=== PATIENT | female | born 1945 | race Caucasian/White ===

== ENCOUNTER 2017-06-26 15:11 | Emergency (ER) | payer MEDICARE, OTHER ==
--- NOTE | 2017-06-26 15:19 | ED Physician Documentation ---
PD HPI FEMALE - Stated complaint Stated Complaint: FEMALE - History obtained from History obtained from: Patient - History of Present Illness Timing - onset: Today Timing - details: Abrupt onset, Still present Associated symptoms: Dysuria, Urinary frequency, Hematuria. No: Abdominal pain , Back pain, Vaginal discharge, Genital sore/lesion Contributing factors: Sexually active Similar symptoms before: Has not had sx before Recently seen: Not recently seen Review of Systems Constitutional: denies: Fever, Chills GI: reports: Diarrhea (a week ago for couple of days, now improved.). 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 - Present Medications Home Medications: Ambulatory Orders Medication Instructions Recorded Confirmed Benzonatate 1 cap PO Q8HR 07/11/14 07/11/14 Citalopram Hydrobromide 20 mg PO DAILY 07/11/14 07/11/14 [Citalopram HBr] Dexamethasone [Decadron] 4 mg PO DAILY #5 tablet 07/11/14 Lisinopril 20 mg PO DAILY 07/11/14 07/11/14 guaiFENesin/CODEINE [Robitussin AC] 10 ml PO DAILY 07/11/14 07/11/14 guaiFENesin/CODEINE [Robitussin AC] 10 ml PO Q6H PRN #240 ml 07/11/14 Phenazopyridine [Pyridium] 100 mg PO TID PRN #15 tablet 06/26/17 Sulfamethox/Trimeth 800/160 1 each PO BID #10 tablet 06/26/17 [Bactrim Ds 800/160] - Allergies Allergies/Adverse Reactions: Allergies Allergy/AdvReac Type Severity Reaction Status Date / Time No Known Drug Allergies Allergy Verified 06/26/17 15:21 - Social History Does the pt smoke?: No Smoking Status: Never smoker Does the pt drink ETOH?: No Does the pt have substance abuse?: No PD ED PE NORMAL - Vitals Vital signs reviewed: Yes - General General: Alert and oriented X 3, No acute distress, Well developed/nourished - Abdomen Abdomen: Soft, Non tender - Back Back: No CVA TTP - Derm Derm: Normal color, Warm and dry Results - Vitals Vitals: Vital Signs - 24 hr 06/26/17 15:18 Temperature 36.1 C L Heart Rate 86 Respiratory 18 Rate Blood Pressure 137/88 H O2 Saturation 98 Oxygen O2 Source Room air PD MEDICAL DECISION MAKING - ED course Complexity details: reviewed results, considered differential, d/w patient Departure - Departure Disposition: Home, Self Care Clinical Impression: UTI (urinary tract infection) Qualifiers: Urinary tract infection type: acute cystitis Hematuria presence: with hematuria Qualified Code(s): N30.01 - Acute cystitis with hematuria Condition: Stable Record reviewed to determine appropriate education?: Yes Instructions: ED UTI Cystitis Female Prescriptions: Sulfamethox/Trimeth 800/160 [Bactrim Ds 800/160] 1 each PO BID #10 tablet Phenazopyridine [Pyridium] 100 mg PO TID PRN #15 tablet PRN Reason: Pain Comments: Drink lots of fluids. Use the phenazopyridine 3 times a day if needed for discomfort with urination. He can also use Tylenol or ibuprofen. Bactrim antibiotic twice daily for 5 days. Recheck if not improving over the next couple of days.
[2017-06-26] MEDS ORDERED: SULFAMETH/TRIMETH DS 800/160 MG TABLET PO STA (15:33)
[2017-06-26] MEDS ORDERED: PHENAZOPYRIDINE 100 MG TABLET PO STA (15:33)
[2017-06-26 15:43] LABS: BILIRUBIN,URINE NEGATIVE (NEGATIVE); PH,URINE 6.5 PH (5.0-7.5)
[2017-06-26] MEDS ORDERED: SULFAMETH/TRIMETH DS 800/160 MG TABLET PO ONE (15:46)
[2017-06-26] MEDS ORDERED: PHENAZOPYRIDINE 100 MG TABLET PO ONE (15:46)
[2017-06-26 15:47] LABS: UA w/ MICROSCOPIC CHARGE YES
[2017-06-26 15:48] LABS: UR CULTURE IF IND INDICATED
[2017-06-26 16:22] VITALS: BP 142/90
== END 2017-06-26 16:18 | disposition home or self-care (01) ==
LOC: ED 15:11
DX: N30.01 Acute cystitis with hematuria (principal); I10 Essential (primary) hypertension
CPT/HCPCS: 81001; 87086; 99283; A9270; 81003

== ENCOUNTER 2019-07-11 13:40 | Emergency (ER) | payer MEDICARE, OTHER ==
[2019-07-11] MEDS ORDERED: TETANUS/DIPHTHERIA/PERTUSSIS 0.5 ML SYRINGE IM ONE (14:02)
[2019-07-11] MEDS ORDERED: LIDOCAINE 1% 2 ML VIAL SUBQ STA (14:08)
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
[2019-07-11 15:04] VITALS: BP 144/78
== END 2019-07-11 15:03 | disposition home or self-care (01) ==
LOC: ED 13:40
DX: S61.211A Laceration without foreign body of left index finger without damage to nail, initial encounter (principal); W26.0XXA Contact with knife, initial encounter; Y92.009 Unspecified place in unspecified non-institutional (private) residence as the place of occurrence of the external cause; I10 Essential (primary) hypertension
CPT/HCPCS: 12001; 90471

== ENCOUNTER 2020-06-29 10:34 | Outpatient (CLI) | payer MEDICARE, OTHER | END 2020-06-29 10:35 | disposition critical access hospital (66) | LOC: EMS 10:34 | PROVIDERS: ATTEND Surgery | DX: M25.561 Pain in right knee (principal) | CPT/HCPCS: A0425; A0429 ==

== ENCOUNTER 2020-06-29 10:59 | Emergency (ER) | payer MEDICARE, OTHER ==
--- NOTE | 2020-06-29 12:24 | XRAY Report ---
PROCEDURE: Knee 4 View RT INDICATIONS: posterior knee pain TECHNIQUE: 4 views of the right knee(s) were acquired. COMPARISON: None. FINDINGS: Bones: No fractures or dislocations, but there is a mild degree of joint space narrowing at the late ral facet of the patellofemoral joint, consistent with secondary changes of patellofemoral joint oste oarthritis. No suspicious bony lesions. Soft tissues: No joint effusion. No suspicious soft tissue calcifications. IMPRESSION: Patellofemoral joint osteoarthritis, lateral facet. No trauma found. Reviewed by: Parminder Sherman MD on 06/29/2020 12:22 PM PDT Approved by: Parminder Sherman MD on 06/29/2020 12:22 PM PDT Station ID: [id number]
--- NOTE | 2020-06-29 13:12 | Ultrasound Report ---
PROCEDURE: Duplex Ext Veins Right INDICATIONS: Posterior knee pain TECHNIQUE: Real-time imaging, as well as color and pulse Doppler interrogation, were performed of the lower extr emity deep veins from the inguinal ligament to the popliteal fossa. COMPARISON: None. FINDINGS: There is no Clement's cyst or other fluid collection in the right popliteal region. The deep veins are normally compressible, and free of intraluminal thrombus. Color and pulse Doppler demonst rate normal phasic intraluminal flow. There is normal augmentation response to distal compression ma neuver. IMPRESSION: No evidence of deep venous thrombosis or Clement's cyst. Reviewed by: Costa Bradley MD on 06/29/2020 1:11 PM PDT Approved by: Costa Bradley MD on 06/29/2020 1:11 PM PDT Station ID: [id number]
--- NOTE | 2020-06-29 13:42 | ED Physician Documentation ---
PD HPI LOWER EXT INJURY - Stated complaint Stated Complaint: R KNEE PX - Chief complaint Chief Complaint: Ext Problem - History obtained from History obtained from: Patient - History of Present Illness PD HPI LOW EXT INJURY LOCATION: Right, Knee Type of injury: Twist Where injury occurred: Street Timing - onset: Last night Timing - duration: Hours Timing - details: Abrupt onset, Still present Improved by: Rest, Ice, Immobilization Worsened by: Moving, Palpating Associated symptoms: Swelling. No: Weakness, Numbness, Tingling Similar symptoms before: Has not had sx before Recently seen: Not recently seen - Additional information Additional information: 75-year-old female had sudden onset of pain in her left posterior thigh while walking and she subsequently developed the pain behind her left knee a feeling like something exploded or popped and pain radiating down into her calf. She is concerned about the possibility of blood clot. She is having pain when she bears weight in her knee. 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 - Present Medications Home Medications: Ambulatory Orders Medication Instructions Recorded Confirmed Benzonatate 1 cap PO Q8HR 07/11/14 07/11/14 Citalopram Hydrobromide 20 mg PO DAILY 07/11/14 07/11/14 [Citalopram HBr] Lisinopril 20 mg PO DAILY 07/11/14 07/11/14 dexAMETHasone [Decadron] 4 mg PO DAILY #5 tablet 07/11/14 guaiFENesin/CODEINE [Robitussin AC] 10 ml PO DAILY 07/11/14 07/11/14 guaiFENesin/CODEINE [Robitussin AC] 10 ml PO Q6H PRN #240 ml 07/11/14 Phenazopyridine [Pyridium] 100 mg PO TID PRN #15 tablet 06/26/17 Sulfamethox/Trimeth 800/160 1 each PO BID #10 tablet 06/26/17 [Bactrim Ds 800/160] - Allergies Allergies/Adverse Reactions: Allergies Allergy/AdvReac Type Severity Reaction Status Date / Time No Known Drug Allergies Allergy Verified 06/26/17 15:21 - Social History Does the pt smoke?: No Smoking Status: Never smoker Does the pt drink ETOH?: No Does the pt have substance abuse?: No - Immunizations Immunizations are current?: Yes PD ED PE NORMAL - Vitals Vital signs reviewed: Yes (hypertensive ) - General General: Alert and oriented X 3, No acute distress, Well developed/nourished - HEENT HEENT: Atraumatic, PERRL, EOMI - Respiratory Respiratory: No respiratory distress - Derm Derm: Normal color, Warm and dry, No rash - Extremities Extremities: Other (There is tenderness to the posterior calf and posterior aspect of the knee extending up to the posterior aspect of the thigh. There is no palpable cord. There is some pain to flexion extension of the knee there is no palpable joint effusion and the ligaments are stable to testing. 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 No trauma found.), EMP read indepedently, See rad report Venous duplex Radiology: Prelim report reviewed, EMP read indepedently, See rad report PD MEDICAL DECISION MAKING - ED course Complexity details: reviewed results, re-evaluated patient, considered differential, d/w patient, d/w family ED course: 75-year-old female who is recovering from a back surgery is going out on a walk daily of less than 2 blocks. Today she had acute onset of pain in the posterior upper thigh posterior lower thigh and had to limp home. After getting into her trailer and walking to her chair she felt a pop in the back of her leg she has significant pain and there is no evidence of DVT fracture or joint effusion. I suspect she has a muscular injury to her posterior thigh. Sh is placed onto crutches. Departure - Departure Disposition: 01 Home, Self Care Clinical Impression: Muscle strain of right thigh Qualifiers: Encounter type: initial encounter Qualified Code(s): S76.911A - Strain of unspecified muscles, fascia and tendons at thigh level, right thigh, initial encounter Condition: Stable Instructions: ED Strain Muscle Ext Follow-Up: [facility] [Provider Group]
[2020-06-29 14:39] VITALS: BP 137/80
== END 2020-06-29 14:39 | disposition home or self-care (01) ==
LOC: EDUNIT# → ED 10:59
DX: S76.911A Strain of unspecified muscles, fascia and tendons at thigh level, right thigh, initial encounter (principal); X50.1XXA Overexertion from prolonged static or awkward postures, initial encounter; Y93.01 Activity, walking, marching and hiking; Y92.410 Unspecified street and highway as the place of occurrence of the external cause; M17.11 Unilateral primary osteoarthritis, right knee; I10 Essential (primary) hypertension
CPT/HCPCS: 99282; 99284

== ENCOUNTER 2020-07-18 09:55 | Emergency (ER) | payer MEDICARE, OTHER ==
--- NOTE | 2020-07-18 12:15 | ED Physician Documentation ---
History of Present Illness - Stated complaint Stated Complaint: R KNEE PX - Chief complaint Chief Complaint: Ext Problem - Additonal information Additional information: 75-year-old female presents to the emergency department with persistent right knee pain that began on 06 July 2020. Patient reports that at that time she was walking and felt a sudden sharp pain behind her knee. She presented to the emergency department and an x-ray and ultrasound DVT were negative for acute pathology. Since then patient has had intermittent pain sometimes worse with walking sometimes occurs just when she simply moves the knee. She has no fevers or redness or swelling. She would like an MRI today. Patient does live in [place] and is visiting with the [place] until the 16th of this month. Review of Systems Constitutional: reports: Reviewed and negative Nose: reports: Reviewed and negative Throat: reports: Reviewed and negative Cardiac: reports: Reviewed and negative Respiratory: reports: Reviewed and negative GI: reports: Reviewed and negative : reports: Reviewed and negative Skin: reports: Reviewed and negative Musculoskeletal: reports: Joint pain. 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 - Present Medications Home Medications: Ambulatory Orders Medication Instructions Recorded Confirmed Benzonatate 1 cap PO Q8HR 07/11/14 07/11/14 Citalopram Hydrobromide 20 mg PO DAILY 07/11/14 07/11/14 [Citalopram HBr] Lisinopril 20 mg PO DAILY 07/11/14 07/11/14 dexAMETHasone [Decadron] 4 mg PO DAILY #5 tablet 07/11/14 guaiFENesin/CODEINE [Robitussin AC] 10 ml PO DAILY 07/11/14 07/11/14 guaiFENesin/CODEINE [Robitussin AC] 10 ml PO Q6H PRN #240 ml 07/11/14 Phenazopyridine [Pyridium] 100 mg PO TID PRN #15 tablet 06/26/17 Sulfamethox/Trimeth 800/160 1 each PO BID #10 tablet 06/26/17 [Bactrim Ds 800/160] - Allergies Allergies/Adverse Reactions: Allergies Allergy/AdvReac Type Severity Reaction Status Date / Time No Known Drug Allergies Allergy Verified 07/18/20 10:26 - Social History Does the pt smoke?: No Smoking Status: Never smoker Does the pt drink ETOH?: No Does the pt have substance abuse?: No - Immunizations Immunizations are current?: Yes PD ED PE EXPANDED - General General: Alert, No acute distress, Other (obese, sitting in wheel chair) - Respiratory Respiratory: Clear to ausultation joann. No: Distress, Labored - Abdomen Abdomen: Normal Bowel sounds. No: Tender to palpation - Extremities Extremities: Right knee (, Flexion and extension of the knee though painful on medial side. Mild tenderness with deep palpation medial side. Mild laxity medially. Able to bear full weight but has an antalgic gait.) Results - Vitals Vitals: Vital Signs - 24 hr 07/18/20 10:15 Temperature 36.8 C Heart Rate 68 Respiratory 18 Rate Blood Pressure 172/72 H O2 Saturation 99 Oxygen O2 Source Room air PD MEDICAL DECISION MAKING - ED course Complexity details: reviewed results, considered differential, d/w patient ED course: 75-year-old female presents to the emergency department with persistent but recurrent right knee pain. Seen a few weeks ago for similar. At that time the etiology was thought likely to be musculoskeletal. On my exam today she does have mild laxity in the joint making me suspicious for a meniscus or ligamentous injury. She has no fevers or swelling or micromotion tenderness. My suspicion for septic arthritis is low. I discussed with patient that it was not possible for us to MRI the knee in the emergency department today. Because she is visiting from [place] of [place] she will plan to return home sooner than anticipated to see her primary care doctor in order to get appropriate imaging and follow-up with the specialist. I have encouraged her to continue to use the walker, a knee immobilizer as well as a walking Rollator for home ambulation Departure - Departure Disposition: 01 Home, Self Care Clinical Impression: Right knee pain Qualifiers: Chronicity: unspecified Qualified Code(s): M25.561 - Pain in right knee Condition: Stable Record reviewed to determine appropriate education?: Yes Instructions: ED Carlene HAGAN Probs Tx Comments: marcel, I hope that your knee is feeling better soon. Unfortunately today we cannot order an MRI of the knee though I agree that in the long-term you likely need this. I would discuss this ER visit with your primary care doctor when you return to [place]. Until then I do recommend that you wear the Fletcher wrap when out of bed during the day and use the walker or crutches in order to help you get around. If at any point you have any redness, swelling suddenly severe or different pain return for a second look.
[2020-07-18 12:25] VITALS: BP 155/78
== END 2020-07-18 12:42 | disposition home or self-care (01) ==
LOC: ED 09:55
DX: M25.561 Pain in right knee (principal); I10 Essential (primary) hypertension; E66.9 Obesity, unspecified
CPT/HCPCS: 99282; 99283